=== PATIENT | male | born 1965 | race African-American/Black ===

== ENCOUNTER 2019-01-31 11:28 | Emergency (ER) | payer SELFPAY ==
[~2019-01-31] VITALS: Ht 180.3 cm; Wt 108.9 kg
[2019-01-31 11:30] VITALS: BP 162/89
[2019-01-31] MEDS ORDERED: HYDR-3164 PO (12:40)
[2019-01-31] MEDS ORDERED: METH4TAB2 PO (12:40)
--- NOTE | 2019-01-31 12:41 | PHYS DOC ---
Past Medical History Past Medical History: Hypertension Past Surgical History: No Surgical History Alcohol Use: None Drug Use: None Adult General Chief Complaint Chief Complaint: HAND PROBLEM HPI HPI Patient is a 53 year old male who presents with since last March patient has had hand pain and finger pain in all joints on both hands bilaterally. Patient states he's had some swelling. Patient states at times it's hard to make a tight fist because of the aching pain. Patient states just tapping over his knuckles or his hand at times or even putting his hands as pocketed times hurt. Patient states he has been using every arthritis medication and Biofreeze to try to help. Patient does not currently have a primary care doctor but is trying to find one. Patient is a kowalski. Patient rates his pain as 7 out of 10. Review of Systems Review of Systems Constitutional: Denies fever or chills [] Eyes: Denies change in visual acuity, redness, or eye pain [] HENT: Denies nasal congestion or sore throat [] Respiratory: Denies cough or shortness of breath [] Cardiovascular: No additional information not addressed in HPI [] GI: Denies abdominal pain, nausea, vomiting, bloody stools or diarrhea [] : Denies dysuria or hematuria [] Musculoskeletal: Bilateral hand pain and joints pain. Denies back pain or joint pain [] Integument: Denies rash or skin lesions [] Neurologic: Denies headache, focal weakness or sensory changes [] Endocrine: Denies polyuria or polydipsia [] All other systems were reviewed and found to be within normal limits, except as documented in this note. Allergies Allergies Allergies Coded Allergies Type Severity Reaction Last Updated Verified No Known Drug Allergies 01/31/19 No Physical Exam Physical Exam Constitutional: Well developed, well nourished, no acute distress, non-toxic appearance. [] HENT: Normocephalic, atraumatic, bilateral external ears normal, oropharynx moist, no oral exudates, nose normal. [] Eyes: PERRLA, EOMI, conjunctiva normal, no discharge. [] Neck: Normal range of motion, no tenderness, supple, no stridor. [] Cardiovascular:Heart rate regular rhythm, no murmur [] Lungs & Thorax: Bilateral breath sounds clear to auscultation [] Abdomen: Bowel sounds normal, soft, no tenderness, no masses, no pulsatile masses. [] Skin: Warm, dry, no erythema, no rash. [] Back: No tenderness, no CVA tenderness. [] Extremities: Bilateral generalized hand tenderness, no cyanosis, no clubbing, ROM intact, 1+ generalized hands edema. [] Neurologic: Alert and oriented X 3, normal motor function, normal sensory function, no focal deficits noted. [] Psychologic: Affect normal, judgement normal, mood normal. [] Current Patient Data Vital Signs Vital Signs Date Time Temp Pulse Resp B/P (MAP) Pulse Ox O2 Delivery O2 Flow Rate FiO2 01/31/19 11:30 98.7 85 15 162/89 (113 98 Room Air 98.7 EKG EKG [] Radiology/Procedures Radiology/Procedures [] Impressions: [facility] [address] [place] [address] IMAGING REPORT Signed PATIENT: NICK KURTZ ACCOUNT: [id number] : 1965 LOCATION: ER AGE: 53 SEX: M EXAM STATUS: REG ER ORD. PHYSICIAN: GHASSNA ANTONIO APRN REASON: joint pain and swelling PROCEDURE: HAND RIGHT 3V EXAM: PA, oblique and lateral views of both hands DATE: 01/31/2019 11:57 AM INDICATION: joint pain and swelling COMPARISON: No Prior FINDINGS: There is no evidence for acute fracture or dislocation. Joint spaces are grossly preserved without significant degenerative/proliferative change. Chronic deformities of the first, second and fifth metacarpals of the right hand likely from old/healed fractures. Small radiopaque density at the dorsal aspect of the right MCP joints, possibly retained foreign body or heterotopic ossification. IMPRESSION: 1. No evidence of acute fracture or dislocation. 2. Small radiopaque density at the dorsal aspect of the right MCP joints, possibly retained foreign body or heterotopic ossification. Electronically signed by: Trent Wilkinson MD (01/31/2019 12:46 PM) [facility] DICTATED and SIGNED BY: TRENT WILKINSON MD DATE: 01/31/19 1246 Course & Med Decision Making Course & Med Decision Making Patient is a 53 year old male who presents with since last March 2018 patient has had hand pain and finger pain in all joints on both hands bilaterally. Patient states he's had some swelling. Patient states at times it's hard to make a tight fist because of the aching pain. Patient states just tapping over his knuckles or his hand at times or even putting his hands as pocketed times hurt. Patient states he has been using every arthritis medication and Biofreeze to try to help. Patient does not currently have a primary care doctor but is trying to find one. Patient is a kowalski. Patient rates his pain as 7 out of 10. Alert and oriented. Speaks in full clear sentences. Ambulatory with a steady gait. Signs are within normal limits. No fever. Bilateral hands have 1+ swelling. The joints are not more swollen and are not prominent, red or warm to touch. Patient can bend fingers at all joints. There is tenderness when palpating over the hand and fingers in general but more so in joints. Patient has been able to continue using his working. Radial pulses strong and present. Cap refill less than 3 seconds. No recent injurys to hands. Patient denies any trauma or foriegn bodies. No foreign bodyies seen. No sign of infection. Bilateral hand xrays: 1. No evidence of acute fracture or dislocation. 2. Small radiopaque density at the dorsal aspect of the right MCP joints, possibly retained foreign body or heterotopic ossification. Patient is prescribed a Medrol Dosepak and given [place]. Patient is also given a pamphlet so he can find a primary care doctor as soon as possible. [place] Disclaimer Dragon Disclaimer This electronic medical record was generated, in whole or in part, using a voice recognition dictation system. Departure Departure Impression: Primary Impression: Arthralgia of hand, left Additional Impression: Arthralgia of hand, right Disposition: 01 HOME, SELF-CARE Condition: STABLE Patient Instructions: Arthralgia, Arthritis, Nonspecific Additional Instructions: Follow-up with a primary care doctor soon as possible. Take medication as prescribed. Scripts Hydrocodone/Apap 5-325 (NORCO 5-325 TABLET) 1 Each Tablet 1 TAB PO PRN Q6HRS PRN for PAIN, #10 TAB 0 Refills Prov: GHASSAN ANTOINO SLITTING MACHINE OPERATOR 01/31/19 Methylprednisolone (MEDROL) 4 Mg Tab.ds.pk 1 PKG PO UD, #1 PKG Prov: BAFUSGHASSAN APRN 01/31/19 Problem Qualifiers GHASSAN ANTONIO APRN Jan 31, 2019 12:41
--- NOTE | 2019-01-31 12:49 | RAD ---
EXAM: PA, oblique and lateral views of both hands DATE: 01/31/2019 11:57 AM INDICATION: joint pain and swelling COMPARISON: No Prior FINDINGS: There is no evidence for acute fracture or dislocation. Joint spaces are grossly preserved without significant degenerative/proliferative change. Chronic deformities of the first, second and fifth metacarpals of the right hand likely from old/healed fractures. Small radiopaque density at the dorsal aspect of the right MCP joints, possibly retained foreign body or heterotopic ossification. IMPRESSION: 1. No evidence of acute fracture or dislocation. 2. Small radiopaque density at the dorsal aspect of the right MCP joints, possibly retained foreign body or heterotopic ossification. Electronically signed by: Trent Ibrahim MD (01/31/2019 12:46 PM) [facility]
== END 2019-01-31 13:17 | disposition home or self-care (01) ==
LOC: ER 11:28
DX: M25.542 Pain in joints of left hand (principal); M25.541 Pain in joints of right hand; I10 Essential (primary) hypertension
CPT/HCPCS: 73130; 99284

== ENCOUNTER 2020-03-06 10:50 | Emergency (ER) | payer SELFPAY ==
[~2020-03-06] VITALS: Ht 180.3 cm; Wt 113.6 kg
[~2020-03-06 10:50] MED LIST: HYDR-3164 PO; METH4TAB2 PO
[2020-03-06 11:34] VITALS: BP 138/85
--- NOTE | 2020-03-06 12:36 | RAD ---
EXAM: KNEE LEFT 4V 03/06/2020 11:57 AM CLINICAL INDICATION:Pain COMPARISON:None TECHNIQUE:4 views of the left knee FINDINGS:No acute fracture. Alignment is normal. There are small medial patellofemoral osteophytes with preserved joint spaces. No joint effusion. Mild infrapatellar soft tissue swelling. IMPRESSION: No acute osseous abnormality. Mild medial and patellofemoral compartment degenerative joint disease. Mild infrapatellar soft tissue swelling or bursitis. Electronically signed by: America Mack MD (03/06/2020 12:33 PM) [id number]
--- NOTE | 2020-03-06 12:45 | RAD ---
Examination: Left Lower Extremity Venous Doppler Ultrasound History: Left leg swelling Comparison: None Procedure: Mcnair scale, color flow 2D and spectal waveform analysis images are obtained with and without compression in the area of the common femoral vein, superficial femoral vein - femoral vein junction, main femoral vein (superficial femoral vein) and popliteal vein. Veins of the proximal calf are also imaged. Findings: There is normal duplex flow, color flow and compressibility of all visualized vein segments. No evidence of deep venous thrombus is present. Impression: No evidence of DVT in the left lower extremity venous system. Electronically signed by: Kaiser Anderson MD (03/06/2020 12:41 PM) [id number]
--- NOTE | 2020-03-06 12:58 | PHYS DOC ---
Past Medical History Past Medical History: Hypertension Past Surgical History: No Surgical History Smoking Status: Never Smoker Alcohol Use: None Drug Use: None General Adult EDM: Chief Complaint: LOWER EXT PAIN HPI: HPI: Patient is a 54 year old male with history of hypertension who presents to the ED today complaining of intermittent left knee and lower extremity swelling for 1 month. Patient denies any injury. Patient states symptoms are worse when he is up on his feet for long hours. Patient also complains of intermittent mild pain to the left knee for the same time-1 month. Denies any injury. States being on his feet for long hours exacerbates his pain. He states he is already on an aspirin every day but he is concerned he could have a DVT to the left lower extremity. Review of Systems: Review of Systems: Constitutional: Denies fever or chills. [] Musculoskeletal: Reports left knee swelling and pain. Denies back pain Integument: Denies rash. [] Neurologic: Denies headache, focal weakness or sensory changes. [] Psychiatric: Denies depression or anxiety. [] Heart Score: Risk Factors: Risk Factors: DM, Current or recent (<one month) smoker, HTN, HLP, family history of CAD, obesity. Risk Scores: Score 0 - 3: 2.5% MACE over next 6 weeks - Discharge Home Score 4 - 6: 20.3% MACE over next 6 weeks - Admit for Clinical Observation Score 7 - 10: 72.7% MACE over next 6 weeks - Early Invasive Strategies Allergies: Allergies: Allergies Coded Allergies Type Severity Reaction Last Updated Verified No Known Drug Allergies 01/31/19 No Physical Exam: PE: Constitutional: Well developed, well nourished, no acute distress, non-toxic appearance. [] Skin: Warm, dry, no erythema, no rash. [] Back: No tenderness, no CVA tenderness. [] Extremities: Left anterior knee with dry skin, and mild swelling over the patella. Slight tenderness on palpation of the left anterior knee. Negative Homans sign to the left lower extremity. +2 left pedal pulse. Cap refill less than 2 seconds to left lower extremity. Sensation intact to the left lower extremity Neurologic: Alert and oriented X 3, normal motor function, normal sensory function, no focal deficits noted. [] Psychologic: Affect normal, judgement normal, mood normal. [] Current Patient Data: Vital Signs: Vital Signs Date Time Temp Pulse Resp B/P (MAP) Pulse Ox O2 Delivery O2 Flow Rate FiO2 03/06/20 11:34 98.3 86 18 138/85 (102) 96 Room Air 98.3 EKG: EKG: [] Radiology/Procedures: Radiology/Procedures: []PROCEDURE: KNEE LEFT 4V EXAM: KNEE LEFT 4V 03/06/2020 11:57 AM CLINICAL INDICATION:Pain COMPARISON:None TECHNIQUE:4 views of the left knee FINDINGS:No acute fracture. Alignment is normal. There are small medial patellofemoral osteophytes with preserved joint spaces. No joint effusion. Mild infrapatellar soft tissue swelling. IMPRESSION: No acute osseous abnormality. Mild medial and patellofemoral compartment degenerative joint disease. Mild infrapatellar soft tissue swelling or bursitis. Electronically signed by: America Mack MD (03/06/2020 12:33 PM) [id number] DICTATED and SIGNED BY: AMERICA MACK MD DATE: 03/06/20 1233 PROCEDURE: VENOUS LOWER EXTREMITY LEFT Examination: Left Lower Extremity Venous Doppler Ultrasound History: Left leg swelling Comparison: None Procedure: Mcnair scale, color flow 2D and spectal waveform analysis images are obtained with and without compression in the area of the common femoral vein, superficial femoral vein - femoral vein junction, main femoral vein (superficial femoral vein) and popliteal vein. Veins of the proximal calf are also imaged. Findings: There is normal duplex flow, color flow and compressibility of all visualized vein segments. No evidence of deep venous thrombus is present. Impression: No evidence of DVT in the left lower extremity venous system. Electronically signed by: Kaiser Anderson MD (03/06/2020 12:41 PM) [id number] DICTATED and SIGNED BY: KAISER ANDERSON MD DATE: 03/06/20 1241 Course & Med Decision Making: Course & Med Decision Making Pertinent Labs and Imaging studies reviewed. (See chart for details) This is a 54-year-old male patient presenting with left knee pain and lower extremity swelling to the left side that has been going on for 1 month. Patient concerned about DVT. Left knee x-ray is negative for any acute findings, noted for DJD. Venous Doppler of the left lower extremity is negative for any acute findings. Patient was discharged home, recommended [id number] knee brace over the left knee as needed. Follow-up with orthopedic doctor which was provided. Pam Disclaimer: Pam Disclaimer: This electronic medical record was generated, in whole or in part, using a voice recognition dictation system. Departure Departure Impression: Primary Impression: Left knee pain Qualified Codes: M25.562 - Pain in left knee Additional Impression: Swelling of left lower extremity Disposition: HOME, SELF-CARE Condition: STABLE Referrals: NO PCP (PCP) ANTONY PARMAR MD follow up in one week Patient Instructions: Knee Pain, [id number] Additional Instructions: You were seen for left knee pain and left lower extremity swelling, your left knee x-rays were negative for any acute findings, you were noted for arthritis in your left knee. Try to ice and elevate the extremity. Use [id number] knee brace as needed for the left knee. You can take [id number]-[id number] pain relievers. Follow-up with the provided orthopedic doctor in the next 1 week. Justicifation of Admission Dx: Justifications for Admission: Justification of Admission Dx: N/A DEVAUGHN SOMMERS APRN Mar 06, 2020 12:58
== END 2020-03-06 13:05 | disposition home or self-care (01) ==
LOC: ER 10:50
DX: M25.562 Pain in left knee (principal); R22.42 Localized swelling, mass and lump, left lower limb; I10 Essential (primary) hypertension
CPT/HCPCS: 73564; 93971; 99284